=== PATIENT | female | born 1955 | race Caucasian/White ===

== ENCOUNTER → 2016-11-29 | Outpatient (CLI) | payer OTHER ==
[2014-08-23 21:05] VITALS: BP 133/78
[2016-11-29 10:01] LABS: BASOPHILS # (AUTO) 0.1 X10^3/uL (0.0-0.1); BASOPHILS % (AUTO) 0.9 % (0.2-1.0); EOSINOPHILS # (AUTO) 0.2 x10^3/uL (0.0-0.2); EOSINOPHILS % (AUTO) 2.1 % (0.9-2.9); HEMATOCRIT 42.5 % (36.0-47.0); HEMOGLOBIN 14.3 g/dL (12.0-16.0); LYMPHOCYTES % (AUTO) 38.5 % (21.0-51.0); MEAN CORPUSCULAR HEMOGLOBIN 28.7 pg (27.0-34.0); MEAN CORPUSCULAR HGB CONC 33.7 g/dL (33.0-35.0); MEAN PLATELET VOLUME 8.3 fL (7.4-11.0); MONOCYTES # (AUTO) 0.6 x10^3/uL (0.3-0.8); MONOCYTES % (AUTO) 8.2 % (0.0-13.0); NEUTROPHILS % (AUTO) 50.3 % (42.0-75.0); PLATELET COUNT 173 X10^3/uL (150.0-450.0); RED CELL DISTRIBUTION WIDTH 14.3 % (11.6-16.5); WHITE BLOOD COUNT 7.9 X10^3/uL (3.6-10.0)
[2016-11-29 10:17] LABS: CREATININE,URINE 111.08 mg/dL (29-226); MICROALBUMIN,URINE 8.8 mg/L
[2016-11-29 10:20] LABS: ALANINE AMINOTRANSFERASE 19 Units/L (12-78); ALBUMIN 3.7 g/dL (3.4-5.0); ALKALINE PHOSPHATASE 98 Units/L (46-116); ASPARTATE AMINO TRANSFERASE 20 Units/L (15-37); BLOOD UREA NITROGEN 15 mg/dL (7-18); CALCIUM 8.8 mg/dL (8.5-10.1); CARBON DIOXIDE 29.7 mmol/L (21-32); CHLORIDE 107 mmol/L (98-107); CHOL/HDL RATIO 5.7 (0.0-5.0); CHOLESTEROL 178 mg/dL (0-200); CREATININE 1.02 mg/dL (0.55-1.02); GLUCOSE 94 mg/dL (65-99); HDL CHOLESTEROL 31 mg/dL (40-60); SODIUM 144 mmol/L (136-145); T4 (THYROXINE) 5.9 ug/dL (4.7-13.3); TOTAL PROTEIN 7.6 g/dL (6.4-8.2); TRIGLYCERIDES 153 mg/dL (0-150); TSH (3RD GENERATION) 2.775 uIU/mL (0.358-3.74); URIC ACID 4.7 mg/dL (2.6-6.0); eGFR BLACK RACES > 60 (>60); eGFR NON BLACK RACES 58 (>60)
== END ==
LOC: LAB 09:08
PROVIDERS: ATTEND Nurse Practitioner Family
DX: E07.89 Other specified disorders of thyroid (principal); I10 Essential (primary) hypertension; Z79.899 Other long term (current) drug therapy
CPT/HCPCS: 36415; 80053; 80061; 82043; 84436; 84443; 84550; 85025

== ENCOUNTER → 2016-12-03 | Outpatient (CLI) | payer OTHER ==
[2014-08-23 21:05] VITALS: BP 133/78
[~2016-12-03] MED LIST: NS 100 ML IV 100 ML IV ONE
--- NOTE | 2016-12-03 11:46 | CT ---
CTA ABDOMEN WITH AND WITHOUT CONTRAST CLINICAL INDICATION: Aneurysm PROCEDURE: Noncontrast CTA images were initially obtained through the abdomen. Following administr ation of non-ionic IV contrast, postcontrast CTA images were obtained through the abdomen. Dose red uction techniques including Automated Exposure Control (AEC) and adjustment of mA and kV were utlize d. COMPARISON: Lumbar spine CT 02/08/2016 FINDINGS: Vascular: Mild aneurysmal dilatation of the infrarenal abdominal aorta up to the 3.0 cm best seen on series 5, image 130. Atherosclerotic calcification of the aorta and major branches.No dissection. CTA Abdomen without contrast: No gallstones. Gallbladder removed. No obstructing renal stones. CTA Abdomen with intravenous contrast: Liver and spleen are normal in size, enhancement characterist ics and contour. No focal lesions. The portal vein is patent. No ductal dilitation. gallbladder abse nt. The pancreas is unremarkable. Adrenal glands are normal. Kidneys enhance symmetrically without h ydronephrosis. Simple right renal cyst. No bowel obstruction or inflammation. No abnormal appearing mesenteric or retroperitoneal lymph nod es. No free fluid or fluid collections. IMPRESSION: Infrarenal abdominal aortic aneurysm measuring 3.0 cm. Reported By:
== END ==
LOC: RAD 10:25
PROVIDERS: ATTEND Nurse Practitioner Family
DX: I71.4 Abdominal aortic aneurysm, without rupture (principal)
CPT/HCPCS: 74170; 82270; A4222

== ENCOUNTER → 2017-10-27 | Outpatient (CLI) | payer OTHER ==
[2014-08-23 21:05] VITALS: BP 133/78
--- NOTE | 2017-10-29 10:37 | MG ---
HISTORY: SCREENING Comparison: December 04, 2015 FINDINGS: Bilateral CC and MLO projections of the right and left breast were obtained. Scattered fibroglandula r tissue is seen to be present without significant interval change. No suspicious architectural dist ortion, mass or clustered microcalcifications can be observed to suggest malignancy. No skin thicken ing or nipple retraction is appreciated. No pathological lymphadenopathy can be identified. Benign- appearing calcifications are noted within the right and left breast. IMPRESSION: NO RADIOGRAPHIC EVIDENCE OF MALIGNANCY. ACR CATEGORY 2 - benign findings. FOLLOW-UP EXAM 1 YEAR. Diagnostic CAD was utilized and reviewed. * 0 (ZERO) - ASSESSMENT INCOMPLETE; ADDITIONAL IMAGING IS NEEDED. * 1/ (ONE) - NEGATIVE. * 2/II (TWO) - BENIGN FINDINGS. * 3/III (THREE) - PROBABLY BENIGN FINDING; SHORT INTERVAL FOLLOW-UP SUGGESTED. * 4/IV (FOUR) - SUSPICIOUS ABNORMALITY; BIOPSY SHOULD BE CONSIDERED. * 5/V - HIGHLY SUSPICIOUS OF MALIGNANCY; BIOPSY SHOULD BE PERFORMED. A NEGATIVE X-RAY REPORT SHOULD NOT DELAY BIOPSY IF A DOMINANT OR CLINICALLY SUSPICIOUS MASS IS PRESENT; 4 TO 8 PERCENT OF CANCERS ARE NOT IDENTIFIED BY X-RAY. A NEGA TIVE REPORT MAY REINFORCE THE CLINICAL IMPRESSION. ADENOSIS AND DENSE BREASTS MAY OBSCURE AN UNDERLY ING NEOPLASM. Reported By:
== END ==
LOC: RAD 09:40
PROVIDERS: ATTEND Nurse Practitioner Family
DX: Z12.31 Encounter for screening mammogram for malignant neoplasm of breast (principal)
CPT/HCPCS: 77067

== ENCOUNTER → 2017-11-14 | Outpatient (CLI) | payer OTHER ==
[2014-08-23 21:05] VITALS: BP 133/78
--- NOTE | 2017-11-14 14:13 | CT ---
HISTORY: Degenerative disc disease Study: CT lumbar spine without contrast Comparison: CT 02/08/2016 Technique: Multiple axial images of the lumbar spine without the administration of IV contrast. Sag ittal and coronal reformats were performed and reviewed. Dose reduction techniques including Automat ed Exposure Control (AEC) and adjustment of mA and kV were utilized. Findings: Alignment of the lumbar spine is maintained. No evidence for acute fracture or subluxation identifie d. Vertebral body heights are preserved. Multilevel degenerative disc space narrowing and spondylosi s is present as well as multilevel degenerative changes in the posterior elements. Again note is made of ectasia of the infrarenal abdominal aorta measuring up to 2.8 cm. At T12-L1, L1-L2, and L2-L3 no significant spinal or foraminal stenosis is identified. L3-L4: There is a broad-based disc bulges and bony ridge resulting in mild spinal canal and lateral r ecess stenosis and moderate bilateral foraminal stenosis. L4-5: There is a large broad-based disc bulge and facet/ligamentum hypertrophy changes resulting in m oderate spinal canal stenosis and moderate to severe bilateral lateral recess and foraminal stenosis, worse on the right. L5-S1: There is a broad-based disc bulge and spondylitic changes in conjunction with facet arthropath y resulting in moderate to severe bilateral foraminal stenosis and moderate bilateral lateral recess stenosis. IMPRESSION: 1. Moderate spinal canal stenosis and moderate to severe bilateral foraminal and lateral recess steno sis at L4-5, worse on the right. 2. Moderate to severe bilateral foraminal stenosis and moderate lateral recess stenosis at L5-S1. 3. Moderate bilateral foraminal stenosis and mild spinal canal stenosis at L3-L4. 4. Stable ectasia of the infrarenal aorta measuring 2.8 cm. Reported By:
== END | disposition home or self-care (01) | DRG 552 ==
LOC: RAD 11:52
PROVIDERS: ATTEND Nurse Practitioner Family
DX: M51.36 Other intervertebral disc degeneration, lumbar region (principal); M48.061 Spinal stenosis, lumbar region without neurogenic claudication; I77.819 Aortic ectasia, unspecified site; M48.07 Spinal stenosis, lumbosacral region
CPT/HCPCS: 72131